=== PATIENT | female | born 1955 | race Caucasian/White ===

== ENCOUNTER 2018-10-22 13:10 | Emergency (ER) | payer MEDICARE, OTHER ==
[~2018-10-22] VITALS: Wt 63.0 kg
[2018-10-22 13:12] VITALS: BP 160/90; PULSE 98; RESP 18
--- NOTE | 2018-10-22 16:28 | ERD ---
ER Documentation Chief Complaint Chief Complaint LEFT EYE FLASHES SINCE LAST WEDNESDAY HPI 63-year-old female presents with some blurriness of the left eye for the last 3 days. She has some red discoloration and possible visual field defect. She does have a history of diabetes and what sounds like retinal hemorrhage. She has been treated by ophthalmology. She was last treated 1 year ago. She denies any fevers, history of trauma. ROS All systems reviewed and are negative except as per history of present illness. Allergies Allergies: Coded Allergies: No Known Allergy (Unverified , 12/24/14) PMhx/Soc Medical and Surgical Hx: pt denies Medical Hx, pt denies Surgical Hx Hx Alcohol Use: No Hx Substance Use: No Hx Tobacco Use: No Smoking Status: Never smoker FmHx Family History: No diabetes, No coronary disease, No other Physical Exam Vitals Vital Signs Date Temp Pulse Resp B/P (MAP) Pulse Ox O2 O2 Flow FiO2 Time Delivery Rate 10/22/18 97.3 98 18 160/90 3 13:12 (113) Physical Exam Const: No acute distress Head: Atraumatic Eyes: Normal Conjunctiva. Eyes PERRLA and extraocular movements intact. Visual acuity is 20/100 -2. Intraocular pressure 19 on the affected eye. ENT: Normal External Ears, Nose and Mouth. Neck: Full range of motion. No meningismus. Resp: Clear to auscultation bilaterally Cardio: Regular rate and rhythm, no murmurs Abd: Soft, non tender, non distended. Normal bowel sounds Skin: No petechiae or rashes Back: No midline or flank tenderness Ext: No cyanosis, or edema Neur: Awake and alert Psych: Normal Mood and Affect Procedures/MDM Renal ultrasound shows echogenic debris in the left globe. Differential includes choroidal detachment or vitreous hemorrhage. Retinal detachment less likely. She presents with a history likely doubt diabetic retinopathy. She has signs and symptoms most consistent with retinal hemorrhage. Patient was discussed that she will need ophthalmology care. Offer was made to transfer to higher level care. Patient declined and will see her learning specialist on Wednesday. Patient was advised of the risks of delayed treatment including permanent loss of vision. Patient was advised to return for new or worsening symptoms she has difficulty seeing her learning specialist. She is advised on other options for urgent ophthalmology evaluation. There is no signs of orbital cellulitis, acute glaucoma, retinal artery occlusion, additional emergent ophthalmology disorders. Departure Diagnosis: Primary Impression: Eye problem Condition: Stable Patient Instructions: [place] Form- 1 Additional Instructions: Va al montoya doctor/ specialista de los ojos para mas evaluacon en el proximo semana. posiblemente necesita autorizado de montoya doctor primario para specialista. Regresa para fiebre, o mas o nueva simptomas. RONAK SNYDER MD Oct 22, 2018 16:28
== END 2018-10-22 16:35 | disposition home or self-care (01) ==
LOC: FTE 13:10
DX: H57.89 Other specified disorders of eye and adnexa (principal); E11.9 Type 2 diabetes mellitus without complications
CPT/HCPCS: 76536